=== PATIENT | female | born 1970 | race Caucasian/White ===

== ENCOUNTER 2018-01-14 16:47 | Emergency (ER) | payer OTHER ==
[~2018-01-14] VITALS: Ht 154.9 cm; Wt 65.8 kg
[2018-01-14] MEDS ORDERED: [UNRECOGNIZED DRUG - OTHER] TOP (17:00)
[2018-01-14] MEDS ORDERED: HYOSCYAMINE0.125 M2 PO (17:01)
[2018-01-14] MEDS ORDERED: FLONASE 0.05%50 MCG NASAL (17:01)
[2018-01-14] MEDS ORDERED: PROMETHAZINE/C118 ML PO (17:02)
[2018-01-14] MEDS ORDERED: SINGULAIR 10 MG10 M1 PO (17:02)
[2018-01-14] MEDS ORDERED: QUINU10 PD PO (17:02)
[2018-01-14] MEDS ORDERED: XALATAN2.5 ML OPHTHALMIC (17:02)
[2018-01-14] MEDS ORDERED: ORADENT 0.1% DEN5 GM TOP (17:03)
[2018-01-14] MEDS ORDERED: TRAMADOL 50 MG50 MG PO (17:03)
[2018-01-14] MEDS ORDERED: ALDACTONE25 MG PO (17:03)
[2018-01-14] MEDS ORDERED: ZANTAC 150MG T150 MG PO (17:04)
[2018-01-14] MEDS ORDERED: ZOFRAN ODT4 MG PO (17:04)
[2018-01-14] MEDS ORDERED: IBUPROFEN 200200 M1 PO (17:05)
[2018-01-14] MEDS ORDERED: NAPROSYN500 MG PO (17:05)
[2018-01-14] MEDS ORDERED: HAIR SKIN NAIL1 EACH PO (17:06)
[2018-01-14] MEDS ORDERED: BENADRYL25 MG PO (17:06)
[2018-01-14] MEDS ORDERED: CETIRIZINE HCL5 M1 PO (17:07)
[2018-01-14] MEDS ORDERED: FISH OIL 1,001000 M2 PO (17:07)
[2018-01-14] MEDS ORDERED: CALCIUM 500 +1 EAC5 PO (17:07)
[2018-01-14] MEDS ORDERED: BIOTIN1000 MCG PO (17:07)
[2018-01-14 17:27] LABS: ABSOLUTE BASOPHILS 0.1 thou/uL (0.0-0.2); ABSOLUTE EOSINOPHILS 0.1 thou/uL (0.0-0.7); ABSOLUTE LYMPHOCYTES 4.7 thou/uL (0.8-5.3); ABSOLUTE MONOCYTES 0.8 thou/uL (0.0-1.2); ABSOLUTE NEUTROPHILS 6.6 thou/uL (1.6-8.1); HEMATOCRIT 40.4 % (37.0-47.0); HEMOGLOBIN 13.8 gm/dL (12.0-15.0); MCH 31.5 pg (26.0-34.0); MCHC 34.2 g/dL (28.0-37.0); MCV 92.3 fL (80.0-100.0); MONOCYTES 6.4 %; MPV 7.6 fl. (7.2-11.1); NUCLEATED RBCS 0 /100WBC; PLATELET COUNT* 397 thou/uL (150-400); POLYS 53.6 %; RBC 4.37 mil/uL (4.20-5.00); RDW-CV 13.1 % (10.5-14.5); WBC 12.3 thou/uL (4.0-11.0)
[2018-01-14 17:36] LABS: ANION GAP 4 mmol/L (7-16); BUN 20 mg/dL (7-18); CALCIUM 9.4 mg/dL (8.5-10.1); CHLORIDE 99 mmol/L (98-107); CO2 31 mmol/L (21-32); CREATININE 0.8 mg/dL (0.6-1.3); GLUCOSE 148 mg/dL (70-99); POTASSIUM 3.7 mmol/L (3.5-5.1); SODIUM 134 mmol/L (136-145)
[2018-01-14 17:38] LABS: APTT 26.8 Seconds (25.0-31.3); PROTIME 9.9 Seconds (9.20-11.50)
[2018-01-14 17:42] LABS: ALBUMIN 4.2 g/dL (3.4-5.0); ALKALINE PHOSPHATASE 71 U/L (46-116); LIPASE 222 U/L (73-393); SGOT 47 U/L (15-37); SGPT 38 U/L (30-65); TOTAL BILIRUBIN 0.3 mg/dL (<0.1-1.0); TOTAL PROTEIN 7.9 g/dL (6.4-8.2); TROPONIN-I LEVEL <0.06 ng/mL (<0.06)
[2018-01-14 19:58] LABS: URINE BILIRUBIN NEGATIVE (Negative); URINE BLOOD NEGATIVE (Negative); URINE CLARITY CLEAR; URINE COLOR STRAW; URINE GLUCOSE-RANDOM NEGATIVE (Negative); URINE KETONES NEGATIVE (Negative); URINE LEUKOCYTES-REFLEX NEGATIVE (Negative); URINE NITRITE-REFLEX NEGATIVE (Negative); URINE PROTEIN NEGATIVE (Negative); URINE SPECIFIC GRAVITY <= 1.005 (1.005-1.030); URINE UROBILINOGEN 0.2 E.U./dl (0.2-1.0)
[2018-01-14 20:58] VITALS: BP 133/78
--- NOTE | 2018-01-15 12:50 | EKG ---
[place] [address] ELECTROCARDIOGRAM REPORT Name: ANNI CHAVIS Room: [facility]#: [id number] Admission: 01/14/18 Attend Phys: Discharge: 01/14/18 Date of : 74 Report #: [id number] THIS REPORT FOR: //name// [facility] ED Test Date: 2018-01-14 Test Time: 16:53:14 Pat Name: ANNI CHAVIS Department: Room: Gender: F Client Success Manager: JACQUIE : 1970 Requested By: Anni Marvin Order Number: [id number] MD: Tanner Loe Measurements Intervals [place] Rate: 93 P: 43 [place]: 142 QRS: 5 QRSD: 92 T: 2 QT: 349 QTc: 435 Interpretive Statements Sinus rhythm No previous ECG available for comparison Electronically Signed On 01-15-2018 12:50:08 TRAIN CALLER by Tanner Leo [email or web address] <ELECTRONICALLY SIGNED> By: Tanner Leo MD, [facility] 01/15/18 1250 [id number] 1653 Tanner Leo MD, FACC /EPI
== END 2018-01-14 21:08 | disposition home or self-care (01) ==
LOC: M.ERS 16:47
PROVIDERS: Nurse Practitioner Family
DX: R07.9 Chest pain, unspecified (principal); M54.9 Dorsalgia, unspecified; Z88.1 Allergy status to other antibiotic agents; Z88.2 Allergy status to sulfonamides